=== PATIENT | female | born 1960 | race Caucasian/White ===

== ENCOUNTER → 2017-03-05 | Outpatient (CLI) | payer BC ==
--- NOTE | 2017-03-06 11:38 | PCVCIMAG ---
APPROVED REPORT Exam: Stress Echocardiogram Indication: Hypertension, Dyspnea, Chest pressure Patient Location: Echo lab Stress Nurse: Yennifer Lechuga RN Status: routine Ht: 5 ft 7 in HR: 98 bpm BP: 142/90 mmHg Rhythm: NSR Procedure The patient underwent an Exercise Stress Test using the Em Protocol. Blood pressure, heart rate, and EKG were monitored. An Echocardiogram was performed by plant health care technician in four stages in quad fashion. At peak stress, four selected images were obtained and placed side by side with resting images for comparison. Stress Test Details Stress Test: Exercise stress testing was performed using a Em protocol. HR Resting HR: 98 bpmMax Heart Rate (APMHR): 164 bpm Max HR Achieved: 162 bpmTarget HR (85% APMHR): 139 bpm % of APMHR: 98 HR response to stress: Normal HR response to stress BP Resting BP: 142/90 mmHg Max BP: 152/84 mmHg ECG Resting ECG: Sinus Bradycardia Stress ECG: Sinus Rhythm Recovery ECG: Sinus Rhythm Clinical Reason for Termination: Maximal effort Exercise duration: 12 min 18 sec Highest Stage Achieved: Stage 5: 5.0 mph at 18% grade. Exercise capacity: 14.5 METs Overall Exercise Capacity for Age: Good Stress ECG Conclusion The patient exercised according to the EM protocol for 12:18 min:, s, achieving a work level of max. METS: 14.50. The resting heart rate of 86 bpm florentin to a maximal heart rate of 169 bpm. The value represents 103% of the maximal age-predicted heart rate. The resting blood pressure of 142/90 mmHg, florentin to a maximum blood pressure of 152/84 mmHg. The exercise test was stopped due to maximal effort. Pre-Stress Echo The resting Echocardiogram showed normal left ventricular contractility with an estimated Ejection Fraction of about >55%. Normal wall motion in all segments on baseline images. Post-Stress Echo The stress Echocardiogram showed normal left ventricular contractility with an estimated Ejection Fraction of about 60-65%. Normal augmentation of wall motion in all segments on post stress images. Clinical No clinical or ECG evidence for ischemia. Conclusion Clinical Response: Non-ischemic Exercise Capacity: Average Stress ECG Response: Non-ischemic Stress Echo Images: Non-ischemic No clinical, EKG or echocardiographic evidence for ischemia. No echocardiographic evidence for exercise induced ischemia. Normal stress echocardiogram with maximal exercise stress. Other Information Study Quality: Good <Conclusion> No clinical, EKG or echocardiographic evidence for ischemia. No echocardiographic evidence for exercise induced ischemia. Normal stress echocardiogram with maximal exercise stress.
== END | disposition home or self-care (01) ==
LOC: EDSTATUS 06:24 → PCVCIMAG 10:32
PROVIDERS: ATTEND Internal Medicine Cardiovascular Disease
DX: I10 Essential (primary) hypertension (principal); G54.0 Brachial plexus disorders; Z82.49 Family history of ischemic heart disease and other diseases of the circulatory system; Z87.891 Personal history of nicotine dependence; Z79.899 Other long term (current) drug therapy; Z88.8 Allergy status to other drugs, medicaments and biological substances
CPT/HCPCS: 93325; 93351

== ENCOUNTER → 2019-02-15 | Outpatient (CLI) | payer BC ==
--- NOTE | 2019-02-15 12:30 | PCVCIMAG ---
EXAM: VENOUS DUPLEX RIGHT UPPER EXTREMITY INDICATION: Arm pain and swelling. FINDINGS: Right arm: The cephalic and basilic veins below the level of the elbow are patent. The basilic vein is not visualized above the elbow. 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 The mid and upper brachial vein is patent. The axillary vein is patent. The subclavian vein shows flow throughout with no evidence of acute thrombus. There is possible stenosis in the mid subclavian vein. Innominate vein is patent. The internal jugular vein is patent. IMPRESSION: No evidence of acute thrombus in the veins of the right arm. 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 The mid and upper brachial vein is patent as is the axillary vein. Possible stenosis mid right subclavian vein. Further evaluation with venography would be helpful. LOC:[place] [id number]
== END | disposition home or self-care (01) ==
LOC: PCVCIMAG 11:27
PROVIDERS: ATTEND Internal Medicine Cardiovascular Disease
DX: M79.89 Other specified soft tissue disorders (principal); G54.0 Brachial plexus disorders; Z87.891 Personal history of nicotine dependence
CPT/HCPCS: 93971